=== PATIENT | male | born 1995 | race Caucasian/White ===

== ENCOUNTER 2021-12-14 11:30 | Emergency (ER) | payer OTHER ==
[~2021-12-14] VITALS: Ht 175.3 cm; Wt 79.4 kg
[2021-12-14 11:32] VITALS: BP 138/70
--- NOTE | 2021-12-14 11:33 | NUR ---
PT KAMRAN, KASSANDRA, VIA GURNEY TO BED 11.
--- NOTE | 2021-12-14 11:42 | NUR ---
PT BIB [facility] C/C OVERDOSE. PT WAS GIVEN 4MG NARCAN BY FRIENDS PRIOR TO MEDICS ARRIVAL. ON ARRIVAL PT GCS 15. BREATHING UNLABORED. NAD. DR BARNETT AT BEDSIDE FOR EVAL.
--- NOTE | 2021-12-14 12:13 | NUR ---
PT REQUESTING TO LEAVE AMA. DR BARNETT SPEAKING TO PT.
[2021-12-14] MEDS ORDERED: NALO4SPR NS (12:14)
== END 2021-12-14 12:13 | disposition home or self-care (01) ==
LOC: EDSEX 11:30 → MED 11:30
DX: T40.411A Poisoning by fentanyl or fentanyl analogs, accidental (unintentional), initial encounter (principal); Z79.899 Other long term (current) drug therapy; Y92.009 Unspecified place in unspecified non-institutional (private) residence as the place of occurrence of the external cause
CPT/HCPCS: 99283

== ENCOUNTER 2021-12-18 05:55 | Emergency (ER) | payer OTHER ==
[~2021-12-18] VITALS: Ht 175.3 cm; Wt 81.6 kg
[~2021-12-18 05:55] MED LIST: NALO4SPR NS
--- NOTE | 2021-12-18 06:03 | NUR ---
[place] [employer] AT BEDSIDE
--- NOTE | 2021-12-18 06:03 | NUR ---
PT KAMRAN ALS. TAKEN TO BED 3
[2021-12-18 06:08] VITALS: BP 135/92
[2021-12-18 07:08] LABS: BASOPHILS # (AUTO) 0.1 K/uL (0.00-0.22); BASOPHILS % (AUTO) 0.5 % (0.0-2.0); EOSINOPHILS % (AUTO) 0.4 % (0.0-4.0); HEMOGLOBIN 13.2 g/dL (12.0-18.0); LYMPHOCYTES # (AUTO) 1.8 K/uL (2.0-11.5); LYMPHOCYTES % (AUTO) 16.1 % (20.5-51.1); MEAN CORPUSCULAR HEMOGLOBIN 30 pg (27-31); MEAN CORPUSCULAR HGB CONC 33 g/dL (33-37); MEAN CORPUSCULAR VOLUME 89.7 fL (80-94); MONOCYTES # (AUTO) 0.9 K/uL (0.8-1.0); NEUTROPHILS # (AUTO) 8.3 K/uL (1.8-7.7); PLATELET COUNT (AUTO) 426 K/uL (140-450); RED BLOOD CELL COUNT(AUTO) 4.46 MIL/uL (4.20-6.10); RED CELL DISTRIBUTION WIDTH 13.9 % (11.6-13.7); WHITE BLOOD COUNT (AUTO) 11.1 K/uL (4.8-10.8)
--- NOTE | 2021-12-18 07:19 | NUR ---
REPORT RECEIVED FROM CIERRA WILSON, TRANSFER OF CARE AT THIS TIME, RECEIVED PT IN BED ASLEEP WITH ONE ARM HANDCUFFED, [place] [employer] AT BEDSIDE. RESPIRATIONS EVEN AND UNLABORED, ON [employer] COUNTER PERSON
--- NOTE | 2021-12-18 07:21 | NUR ---
Change of shift report given to AM shift nurse Linda RN. AM shift nurse Linda RN verbalized understanding of report, no further questions.
[2021-12-18 07:50] LABS: ALBUMIN 3.3 g/dL (3.4-5.0); ASPARTATE AMINOTRANSFERASE 23 U/L (15-37); CHLORIDE 104 mmol/L (98-107); CREATININE 0.9 mg/dL (0.6-1.3); GFR ARICAN-AMERICAN 129 mL/min (>90); GLUCOSE 103 mg/dL (74-106); SODIUM SERUM 140 mmol/L (136-145); TOTAL BILIRUBIN 0.2 mg/dL (0.0-1.0); UREA NITROGEN, BLOOD 15 mg/dL (7-18)
[2021-12-18 07:53] LABS: SALICYLATE < 2.8 mg/dL (2.8-20.0)
[2021-12-18 07:54] LABS: ACETAMINOPHEN < 0.5 ug/ml (10-30)
[2021-12-18 08:09] VITALS: BP 123/75
--- NOTE | 2021-12-18 08:10 | NUR ---
Patient discharged with v/s stable. Written and verbal after care instructions given and explained. Patient verbalized understanding. Police with in custody. All questions addressed prior to discharge. Advised to follow up with PMD.
== END 2021-12-18 08:10 ==
LOC: MED 05:55
DX: S00.83XA Contusion of other part of head, initial encounter (principal); R41.82 Altered mental status, unspecified; Z20.822 Contact with and (suspected) exposure to COVID-19; F15.90 Other stimulant use, unspecified, uncomplicated; Z79.899 Other long term (current) drug therapy; W18.39XA Other fall on same level, initial encounter; Y92.89 Other specified places as the place of occurrence of the external cause; Y93.89 Activity, other specified; Y99.8 Other external cause status
CPT/HCPCS: 36415; 70450; 80053; 85025; 87426; 90471; 90715; 99284; G0480; G0482